=== PATIENT | female | born 1995 | race Caucasian/White ===

== ENCOUNTER 2025-05-18 05:50 | Day surgery (SDC) | payer OTHER ==
[2025-05-17 11:22] VITALS: BMI 30.2
[2025-05-18] MEDS ORDERED: AFRIN NASAL MIST 15 ML BOT ONE ×2 (07:01→08:03)
[2025-05-18 07:15] LABS: Hematocrit 36.5 % (34.9-44.5)
[2025-05-18 07:26] LABS: BHCG - Serum Negative (NEGATIVE); Pregs Control Background? CLEAR/WHITE (CLR/WHITE); Pregs Control Bar Appear? YES (CONTROL BAR)
[2025-05-18] MEDS ORDERED: Bacitracin 1 PK ONE (08:03)
[2025-05-18] MEDS ORDERED: Lidocaine 1% w/Epinephrine 1:200K 30 ML VIAL ONE (08:03)
[2025-05-18] MEDS ORDERED: PROPOFOL 20 ML ONE (08:06)
[2025-05-18] MEDS ORDERED: Lidocaine 1% PF 5 ML VIAL ONE (08:07)
[2025-05-18] MEDS ORDERED: Rocuronium Bromide 10 MG/ML (10ML VIAL) ONE (08:07)
[2025-05-18] MEDS ORDERED: Ondansetron PF 4 MG/2 ML Vial ONE (08:24)
[2025-05-18] MEDS ORDERED: Oxymetazoline HCl 0.05% (15 ML) ONE (08:31)
[2025-05-18] MEDS ORDERED: SUCCINYLCHOLINE/SOD CL,ISO/PF 200 MG/10 ML SYRINGE FS ONE (08:39)
[2025-05-18] MEDS ORDERED: HYDROmorphone 0.5 MG/0.5 ML SYRINGE ONE (09:19)
[2025-05-18] MEDS ORDERED: Hydrocodone-Acetamin 15 ML UDCUP ONE (09:40)
== END 2025-05-18 10:20 | disposition home or self-care (01) ==
LOC: CSHSDC 05:50
PROVIDERS: ATTEND Otolaryngology Plastic Surgery within the Head & Neck
DX: J34.2 Deviated nasal septum (principal); J34.3 Hypertrophy of nasal turbinates; J01.00 Acute maxillary sinusitis, unspecified; J30.9 Allergic rhinitis, unspecified; H61.22 Impacted cerumen, left ear; F32.A Depression, unspecified
CPT/HCPCS: 36415; 84703; 85014; J1100; J1171; J2250; J2405; J2704; J3010